=== PATIENT | female | born 1995 ===

== ENCOUNTER 2018-11-04 03:55 | Emergency (ER) | payer OTHER ==
[2018-11-04 04:22] VITALS: TEMP 98.6; O2SAT 100
[2018-11-04] MEDS ORDERED: Sodium Chloride 0.9% 1,000 ML IV STA (04:36)
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
[2018-11-04 05:06] LABS: BASO % 0.4 % (0.0-2.0); EOS # 0.1 K/uL (0.0-0.7); EOS % 1.2 % (0.0-4.0); HEMOGLOBIN 12.9 g/dL (12.0-16.0); LYMPH # 2.8 K/uL (1.0-4.3); LYMPH % 27.4 % (20.0-40.0); MEAN CELL VOLUME 88.3 fl (81.0-99.0); MEAN CORPUSCULAR HEMOGLOBIN 29.5 pg (27.0-31.0); MEAN CORPUSCULAR HGB CONC 33.4 g/dL (33.0-37.0); MEAN PLATELET VOLUME 8.6 fl (7.2-11.7); MONO # 0.8 K/uL (0.0-0.8); MONO % 7.5 % (0.0-10.0); NEUT # 6.4 K/uL (1.8-7.0); NEUT % 63.5 % (50.0-75.0); RBC 4.36 Mil/uL (3.80-5.20); RED CELL DISTRIBUTION WIDTH 13.3 % (11.5-14.5); WHITE BLOOD COUNT 10.1 K/uL (4.8-10.8)
[2018-11-04 05:10] LABS: ALB/GLOB RATIO 1.2 (1.0-2.1); ALBUMIN 4.5 g/dL (3.5-5.0); ALT/SGPT 31 U/L (9-52); AST/SGOT 22 U/L (14-36); BLOOD UREA NITROGEN 12 mg/dl (7-17); CALCIUM 9.7 mg/dL (8.4-10.2); GFR NON-AFRICAN AMERICAN > 60
[2018-11-04 05:27] LABS: T3 UPTAKE 31.2 % (23.0-41.0)
[2018-11-04 06:36] VITALS: BP 110/75; PULSE 81; RESP 18
--- NOTE | 2018-11-04 07:06 | CARD ---
APPROVED REPORT Date of service: 11/04/2018 EKG Measurement Heart [id number] <Conclusion> Sinus tachycardia Possible Left atrial enlargement Borderline ECG
== END 2018-11-04 06:54 | disposition home or self-care (01) ==
LOC: H.ER 03:55
DX: R00.2 Palpitations (principal); E86.0 Dehydration; I10 Essential (primary) hypertension
CPT/HCPCS: 80053; 84443; 84479; 84484; 85025; 85378; 93005; 96360; 99283; J7030